=== PATIENT | female | born 2000 | race Caucasian/White ===

== ENCOUNTER → 2025-07-12 12:58 | Outpatient (REF) | payer BC, SELFPAY ==
[2025-07-12 15:22] LABS: Hematocrit 40.4 % (37.0-47.0); Hemoglobin 13.3 g/dL (12.0-16.0); Mean Corp Hgb Conc. 32.9 g/dL (33.0-37.0); Mean Corpuscular Volume 91.0 fL (81.0-99.0); Nucleated Red Blood Cells % 0 %; Platelet Count 240 10^3/uL (130-400); Red Cell Dist. Width 12.2 % (11.5-14.5)
[2025-07-12 15:32] LABS: HDL Cholesterol 71 mg/dl; LDL Cholesterol, Calculated 111 mg/dl; Very Low Density Lipoprotein 15 mg/dl (0-30)
[2025-07-12 15:48] LABS: Beta HCG Quantitative < 2.39 mIU/ml; FSH 2.5 mIU/ml
[2025-07-13 09:03] LABS: Glycohemoglobin (HgbA1c) 5.1 % (4.0-5.9)
== END ==
LOC: HWRAD 12:58
PROVIDERS: ATTENDING PHYSICIAN Obstetrics & Gynecology; FAMILY PHYSICIAN Family Medicine
DX: N92.6 Irregular menstruation, unspecified (principal)
CPT/HCPCS: 36415; 76830; 76856; 80061; 82626; 82627; 82670; 83001; 83002; 83036; 84146; 84270; 84402; 84403; 84443; 84702; 85025